=== PATIENT | female | born 1975 | race Asian ===

== ENCOUNTER 2020-09-21 09:27 | Emergency (ER) | payer BC ==
[~2020-09-21] VITALS: Ht 160 cm; Wt 59.9 kg
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
[2020-09-21] MEDS ORDERED: IBUPROFEN 600 MG TABLET ONE (10:31)
[2020-09-21] MEDS ORDERED: DIAZEPAM 5 MG TABLET ONE (10:31)
[2020-09-21] MEDS ORDERED: METH-649 GT (10:32)
[2020-09-21] MEDS ORDERED: IBUP-1953 PO (10:32)
[2020-09-21] MEDS: DIAZEPAM 5 MG TABLET PO ONE (10:36)
[2020-09-21] MEDS: IBUPROFEN 600 MG TABLET PO ONE (10:36)
[2020-09-21 10:59] VITALS: BP 112/76
--- NOTE | 2020-09-21 10:59 | NUR ---
Patient discharged to home in stable condition. Written and verbal after care instructions given. Patient verbalizes understanding of instruction.
== END 2020-09-21 11:00 | disposition home or self-care (01) ==
LOC: EDSEX 09:27 → ER 09:38
DX: S29.012A Strain of muscle and tendon of back wall of thorax, initial encounter (principal); S00.81XA Abrasion of other part of head, initial encounter; S80.812A Abrasion, left lower leg, initial encounter; S80.811A Abrasion, right lower leg, initial encounter; V49.49XA Driver injured in collision with other motor vehicles in traffic accident, initial encounter; Y93.89 Activity, other specified; Y92.413 State road as the place of occurrence of the external cause; Y99.8 Other external cause status